=== PATIENT | female | born 1950 | race Caucasian/White ===

== ENCOUNTER 2020-06-07 11:12 | Observation (INO) ==
[2020-06-07] MEDS ORDERED: SODIUM CHLORIDE 0.9% 1,000 ML IV STA (12:57)
[2020-06-07 14:14] LABS: Basophils % 0.2 % (0.0-0.8); Eosinophils % 0.6 % (0.00-10.9); Hematocrit 38.1 VOL% (35.7-47.0); Hemoglobin 12.6 GM/DL (12.0-16.0); Immature Granulocytes % 0.4 %; Immature Granulocytes Absolute 0.02 #; Lymphocytes # 1.2 10*3/uL (1.4-4.0); Lymphocytes % 25.1 % (21.3-54.2); Mean Corpuscular HGB Conc 33.1 GM/DL (32-36); Mean Corpuscular Volume 87.4 FL (87-102); Mean Platelet Volume 10.9 FL (9.6-12.0); Monocytes % 6.4 % (1.7-12.7); Neutrophils % 67.3 % (38.7-73.9); Platelet Count 195 T/CUMM (130-400); Red Blood Count 4.36 MC/CUMM (3.8-5.5); Red Cell Distribution Width 13.4 % (9.3-17.3); White Blood Count 4.8 T/CUMM (4-12)
[2020-06-07 14:37] LABS: Alanine Aminotransferase 29 U/L (13-56); Albumin 3.5 G/DL (3.4-5.0); Alkaline Phosphatase 90 U/L (45-117); Aspartate Amino Transferase 22 U/L (0-37); Bilirubin,Total < 0.39 MG/DL (0.2-1.0); Blood Urea Nitrogen 22 MG/DL (7-18); Calcium 9.4 MG/DL (8.5-10.1); Estimated Glom Filtration Rate 59 ML/MIN; Glucose 101 MG/DL (74-106); Osmolality,Calculated 268.4 MOS/KG (273-304); Total Protein 7.3 G/DL (6.4-8.3)
[2020-06-07] MEDS ORDERED: ONDANSETRON 4 MG/2 ML VIAL IV PRN (14:47)
[2020-06-07] MEDS ORDERED: DEXTROSE 50% 25 GM/50 ML VIAL IV PRN (14:47)
[2020-06-07] MEDS ORDERED: GLUCAGON 1 MG VIAL IM PRN (14:47)
[2020-06-07] MEDS ORDERED: POTASSIUM CHLORIDE 20 MEQ TABLET PO ONE (14:53)
[2020-06-07] MEDS ORDERED: ENOXAPARIN 40 MG/0.4 ML SYRINGE SUBCUT SCH (15:00)
[2020-06-07] MEDS ORDERED: SODIUM CHLORIDE 0.9% 1,000 ML IV SCH (15:00)
[2020-06-07] MEDS ORDERED: POTASSIUM CHLORIDE 20 MEQ TABLET PO STA (15:17)
[2020-06-07] MEDS ORDERED: DEXAMETHASONE 4 MG/1 ML VIAL IV ONE (15:19)
[2020-06-07 15:29] LABS: PT Patient Result 10.3 SECS (9.8-11.9)
[2020-06-07 15:35] LABS: Ferritin 443.1 ng/ml (8-252)
[2020-06-07] MEDS ORDERED: cefTRIAXone 1,000 MG in SYRINGE 1 EACH IV SCH (16:00)
[2020-06-07 16:56] LABS: Troponin I 0.132 NG/ML (0.00-0.045)
[2020-06-07] MEDS ORDERED: AZITHROMYCIN INJ 500 MG in SODIUM CHLORIDE 0.9% 250 ML IV SCH (17:00)
[2020-06-07 17:32] LABS: Apearance,Urine CLEAR (Clear); Bilirubin,Urine Negative (Negative); Blood, Urine Small mg/dL (Negative); Glucose,Urine (UA) Negative (Negative); Ketones,Urine 5 mg/dL (Negative); Nitrite,Urine Negative (Negative); Protein,Urine Negative; RBC,Urine <1 /HPF (0-4); Squamous Epithelial Cell,Urine Occasional /HPF (0-10); Urine Color Straw (Yellow); Urine Specific Gravity 1.011 (1.001-1.035); Urine Urobilinogen < 2.0 EU/DL (0.2-1.0); WBC,Urine 3 /HPF (0-6)
[2020-06-07] MEDS: ZINC SULFATE 220 MG CAPSULE PO SCH (20:23)
[2020-06-07] MEDS: busPIRone 10 MG TABLET PO SCH (20:24)
[2020-06-07] MEDS: ASCORBIC ACID 500 MG TABLET PO SCH (20:24)
[2020-06-07] MEDS: POTASSIUM CHLORIDE INJ 20 MEQ in LACTATED RINGERS 1,000 ML IV SCH (20:58)
[2020-06-07] MEDS ORDERED: ZALEPLON 5 MG CAPSULE PO PRN (21:11)
[2020-06-08] MEDS: POTASSIUM CHLORIDE INJ 20 MEQ in LACTATED RINGERS 1,000 ML IV SCH (04:57)
[2020-06-08 06:35] LABS: Calcium 9.1 MG/DL (8.5-10.1); Osmolality,Calculated 270.1 MOS/KG (273-304)
[2020-06-08 06:39] LABS: Ferritin 351.2 ng/ml (8-252)
[2020-06-08 08:06] VITALS: BP 163/68
[2020-06-08] MEDS: ASCORBIC ACID 500 MG TABLET PO SCH (08:34)
[2020-06-08] MEDS: busPIRone 10 MG TABLET PO SCH (08:34)
[2020-06-08] MEDS: ZINC SULFATE 220 MG CAPSULE PO SCH (08:34)
[2020-06-08] MEDS ORDERED: PANTOPRAZOLE 40 MG TABLET PO SCH ×2 (09:00)
[2020-06-08] MEDS ORDERED: LOSARTAN 50 MG TABLET PO SCH (09:00)
[2020-06-08] MEDS ORDERED: METOPROLOL TARTRATE 50 MG TABLET PO SCH ×2 (09:00)
[2020-06-08] MEDS ORDERED: BISACODYL 5 MG TABLET PO ONE (11:00)
[2020-06-10] MEDS ORDERED: fentaNYL 75 MCG/HR PATCH TRANSDERM SCH (09:00)
== END 2020-06-08 13:30 | disposition home or self-care (01) ==
LOC: N.EDINP 11:12 → N.ED 11:12 → N.2E 18:10
PROVIDERS: ADMIT Internal Medicine; ATTEND Internal Medicine